=== PATIENT | female | born 1975 | race Two or more races ===

== ENCOUNTER → 2023-10-11 | Emergency (ER) | payer OTHER ==
[~2023-10-11] VITALS: Ht 154.9 cm; Wt 50.8 kg
[~2023-10-11] MED LIST: TOBRAMYCIN/DEXAMETHASONE 20 DR/ML DROPS OP STA
== END | disposition left against medical advice (07) ==
LOC: ER 11:00
DX: H10.12 Acute atopic conjunctivitis, left eye (principal)